=== PATIENT | female | born 1970 | race Caucasian/White ===

== ENCOUNTER 2020-07-10 01:34 | Emergency (ER) | payer OTHER ==
[~2020-07-10] VITALS: Ht 162.6 cm; Wt 87.3 kg
[2020-07-10] MEDS ORDERED: LIDOCAINE 1%, 10ML INFIL ONE (02:30)
[2020-07-10] MEDS ORDERED: NEOSPORIN OINT. PKT 1 PACKET ONE (03:00)
[2020-07-10 03:28] VITALS: BP 124/75
== END 2020-07-10 03:53 | disposition home or self-care (01) ==
LOC: ED 02:04
DX: S01.01XA Laceration without foreign body of scalp, initial encounter (principal); R10.9 Unspecified abdominal pain; R55 Syncope and collapse; R42 Dizziness and giddiness; Z90.710 Acquired absence of both cervix and uterus; W19.XXXA Unspecified fall, initial encounter; Y93.89 Activity, other specified; Y92.098 Other place in other non-institutional residence as the place of occurrence of the external cause; Y99.8 Other external cause status
CPT/HCPCS: 12031; 93005; 99284